=== PATIENT | female | born 1955 | race American Indian/Alaskan Native ===

== ENCOUNTER 2018-03-11 12:51 | Inpatient (IN) | payer MEDICAID ==
[2018-03-11] MEDS ORDERED: Sodium Chloride 0.9% 1,000 ML IV ONE (13:33)
[2018-03-11] MEDS ORDERED: Albuterol-Ipratrop 3 mg / 0.5 (3 ml) UD INH STA ×2 (13:34→14:05)
[2018-03-11] MEDS ORDERED: Sodium Chloride 0.9% 1,000 ML ONE (14:02)
[2018-03-11 14:07] LABS: BASO % 0.7 % (0.0-2.0); EOS # 0.2 K/uL (0.0-0.7); EOS % 2.7 % (0.0-4.0); HEMOGLOBIN 12.9 g/dL (11.0-16.0); LYMPH # 2.2 K/uL (1.0-4.3); LYMPH % 32.5 % (20.0-40.0); MEAN CELL VOLUME 89.7 fL (81.0-99.0); MEAN CORPUSCULAR HGB CONC 34.5 g/dL (33.0-37.0); MEAN PLATELET VOLUME 8.5 fL (7.2-11.7); MONO # 0.4 K/uL (0.0-0.8); MONO % 6.2 % (0.0-10.0); NEUT % 57.9 % (50.0-75.0); RBC 4.17 Mil/uL (3.80-5.20); RED CELL DISTRIBUTION WIDTH 14.6 % (11.5-14.5); WHITE BLOOD COUNT 6.9 K/uL (4.8-10.8)
[2018-03-11] MEDS ORDERED: Albuterol-Ipratrop 3 mg / 0.5 (3 ml) UD ONE ×2 (14:12→15:37)
[2018-03-11 14:19] LABS: ALB/GLOB RATIO 1.2 (1.0-2.1); ALBUMIN 4.2 g/dL (3.5-5.0); ALT/SGPT 11 U/L (9-52); AST/SGOT 15 U/L (14-36); BLOOD UREA NITROGEN 8 mg/dL (7-17); CALCIUM 9.1 mg/dl (8.6-10.4); GFR NON-AFRICAN AMERICAN > 60
[2018-03-11 14:30] LABS: B-TYPE NATRIURETIC PEPTIDE 24.3 pg/mL (0-900)
--- NOTE | 2018-03-11 14:40 | C.PDOC ---
History Of Present Illness 62 y/o female, w/PMhx of COPD, presents to the ER complaining of persistent cough which has been present for the past 2 weeks. Patient states that she smokes 5 cigarettes per day. Patient reports that she uses a puffer at home.Denies having CP, SOB, fever, and chills. Time Seen by Provider: 03/11/18 13:26 Chief Complaint (Nursing): Cough, Cold, Congestion History Per: Patient History/Exam Limitations: no limitations Onset/Duration Of Symptoms: Days Current Symptoms Are (Timing): Still Present Severity: Moderate Past Medical History Reviewed: Historical Data, Nursing Documentation, Vital Signs Vital Signs: Last Vital Signs Temp 99.5 F 03/11/18 13:05 Pulse 115 H 03/11/18 13:05 Resp 18 03/11/18 13:05 BP 151/120 H 03/11/18 13:05 Pulse Ox 97 03/11/18 13:05 - Medical History PMH: COPD, HTN, Hyperlipidemia Surgical History: No Surg Hx Family History: States: No Known Family Hx - Social History Hx Alcohol Use: No Hx Substance Use: No - Immunization History Hx Tetanus Toxoid Vaccination: No Hx Influenza Vaccination: No Hx Pneumococcal Vaccination: No Review Of Systems Except As Marked, All Systems Reviewed And Found Negative. Constitutional: Positive for: Other (poor sleep, + snoring, + sleep apnea, Unable to loose weight with minimal PO intake). Negative for: Fever, Chills Cardiovascular: Negative for: Chest Pain Respiratory: Positive for: Cough. Negative for: Shortness of Breath Physical Exam - Physical Exam Appears: Other (obese black female, moderate respiratory distress) Skin: Normal Color, Warm, Dry Head: Atraumatic, Normacephalic Eye(s): bilateral: Normal Inspection Nose: Normal Oral Mucosa: Moist Throat: Normal, No Erythema, No Exudate Neck: Supple Chest: Symmetrical Cardiovascular: Rhythm Regular Respiratory: Rhonchi (scattered rhonchi), Wheezing (scattered wheezing) Gastrointestinal/Abdominal: Normal Exam, Soft, No Tenderness, No Guarding, No Rebound Neurological/Psych: Oriented x3, Normal Speech ED Course And Treatment - Laboratory Results Result Diagrams: 03/11/18 14:03 03/11/18 14:03 Lab Interpretation: Normal (trop/bnp neg.) ECG: Interpreted By Me ECG Rhythm: Sinus Rhythm ECG Interpretation: Normal Rate From EC O2 Sat by Pulse Oximetry: 97 (RA) Pulse Ox Interpretation: Normal - Radiology CXR: Interpreted by Me CXR Interpretation: Yes: No Acute Disease, Other (+ hyperinflated) Reevaluation Time: 14:36 Reassessment Condition: Improved - Physician Consult Information Outcome Of Conversation: [id number]: d/w Hospitalist- covering self-pay pt's, ok to Tele Obs. Medical Decision Making Medical Decision Making: copd smoker normal WBC's defer ABx conitnue steroids, nebs YUDELKA; typical symptoms consider bipap/cpap QHS Sleep study f/u as opt or inpt Nicotine Addiction Continue Nicotine patch as inpt Disposition Doctor Will See Patient In The: Hospital Counseled Patient/Family Regarding: Studies Performed, Diagnosis - Disposition Disposition: HOSPITALIZED Disposition Time: 14:40 Condition: GOOD Forms: [facility] (Paraguayan) - Clinical Impression Clinical Impression: COPD (chronic obstructive pulmonary disease), Sleep apnea in adult - Scribe Statement The provider has reviewed the documentation as recorded by the Garcia Carroll Provider Attestation: All medical record entries made by the Khloeibdmitry were at my direction and personally dictated by me. I have reviewed the chart and agree that the record accurately reflects my personal performance of the history, physical exam, medical decision making, and the department course for this patient. I have also personally directed, reviewed, and agree with the discharge instructions and disposition.
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
[2018-03-11 15:51] LABS: ABG ALLEN TEST POS; ARTERIAL BLOOD GAS HCO3 24.9 mmol/L (21-28); ARTERIAL BLOOD GAS HEMOGLOBIN 12.9 g/dL (11.7-17.4); ARTERIAL BLOOD GAS O2 SAT 97.9 % (95-98); ARTERIAL BLOOD GAS PCO2 40 mm/Hg (35-45); ARTERIAL BLOOD GAS PO2 82 mm/Hg (80-100)
[2018-03-11] MEDS ORDERED: MethylPREDNISolone 40 mg Vial IVP SCH (16:15)
[2018-03-11 16:29] VITALS: RESP 20
[2018-03-11] MEDS ORDERED: NIFEdipine 60 mg ER Tab PO ONE (16:30)
--- NOTE | 2018-03-11 16:32 | RAD ---
Date of service: 03/11/2018 PROCEDURE: CHEST RADIOGRAPH, 1 VIEW HISTORY: SOB COMPARISON: None available. FINDINGS: LUNGS: Minor bibasilar atelectasis. PLEURA: No pneumothorax or pleural fluid seen. CARDIOVASCULAR: Heart size upper limits of normal. Aorta slightly ectatic and uncoiled. OSSEOUS STRUCTURES: No significant abnormalities. VISUALIZED UPPER ABDOMEN: Normal. OTHER FINDINGS: None. IMPRESSION: Minor bibasilar atelectasis.
[2018-03-11 17:39] LABS: STREP PNEUMONIAE NEGATIVE (NEGATIVE)
[2018-03-11] MEDS: Saccharomyces Boulardi 250 mg Cap PO SCH (17:40)
[2018-03-11] MEDS: guaiFENesin 600 mg ER Tab PO SCH (17:40)
[2018-03-11] MEDS: Albuterol-Ipratrop 3 mg / 0.5 (3 ml) UD INH SCH ×2 (19:36→23:37)
[2018-03-11] MEDS: MethylPREDNISolone 40 mg Vial IVP SCH (20:20)
[2018-03-12] MEDS: Albuterol-Ipratrop 3 mg / 0.5 (3 ml) UD INH SCH ×6 (02:59→23:13)
[2018-03-12] MEDS: MethylPREDNISolone 40 mg Vial IVP SCH ×3 (04:22→21:00)
[2018-03-12 07:42] LABS: BASO % 0.1 % (0.0-2.0); HEMOGLOBIN 13.1 g/dL (11.0-16.0); LYMPH # 0.9 K/uL (1.0-4.3); LYMPH % 9.5 % (20.0-40.0); MEAN CORPUSCULAR HEMOGLOBIN 30.8 pg (27.0-31.0); MEAN CORPUSCULAR HGB CONC 34.6 g/dL (33.0-37.0); MEAN PLATELET VOLUME 8.6 fL (7.2-11.7); MONO # 0.2 K/uL (0.0-0.8); MONO % 2.1 % (0.0-10.0); NEUT % 88.3 % (50.0-75.0); PLATELET COUNT 263 K/uL (130-400); RBC 4.24 Mil/uL (3.80-5.20); RED CELL DISTRIBUTION WIDTH 14.4 % (11.5-14.5); WHITE BLOOD COUNT 9.1 K/uL (4.8-10.8)
[2018-03-12] MEDS: Tiotropium 18 mcg Cap For Inhalation INH SCH (08:02)
[2018-03-12 08:04] LABS: ALB/GLOB RATIO 1.2 (1.0-2.1); ALBUMIN 4.2 g/dL (3.5-5.0); ALT/SGPT 7 U/L (9-52); AST/SGOT 16 U/L (14-36); BLOOD UREA NITROGEN 14 mg/dL (7-17); CALCIUM 9.6 mg/dl (8.6-10.4); GFR NON-AFRICAN AMERICAN > 60; HDL CHOLESTEROL 59 mg/dL (30-70)
[2018-03-12 08:07] LABS: LDL CHOLESTEROL 145 mg/dL (0-129)
[2018-03-12 09:23] LABS: BANDS 1 % (0-2); TOTAL CELLS COUNTED 100
[2018-03-12 09:24] LABS: ANISOCYTOSIS SLIGHT; LARGE PLATELETS PRESENT; LYMPHOCYTE 9 % (20-40); MONOCYTE 2 % (0-10); NEUTROPHIL 88 % (50-75); PLATELET ESTIMATE NORMAL (NORMAL)
[2018-03-12] MEDS: Enoxaparin 40 mg Syringe SC SCH (09:27)
[2018-03-12] MEDS: Saccharomyces Boulardi 250 mg Cap PO SCH ×2 (09:27→18:16)
[2018-03-12] MEDS: NIFEdipine 60 mg ER Tab PO SCH (09:28)
[2018-03-12] MEDS: guaiFENesin 600 mg ER Tab PO SCH ×2 (09:28→18:16)
[2018-03-12] MEDS ORDERED: Pneumococcal 23-Valent Vaccine IM ONE (10:00)
--- NOTE | 2018-03-12 12:39 | RAD ---
Date of service: 03/12/2018 HISTORY: Shortness of breath. COMPARISON: March 11, 2018. TECHNIQUE: Chest PA and lateral FINDINGS: LUNGS: No active pulmonary disease. PLEURA: No significant pleural effusion identified. No pneumothorax apparent. CARDIOVASCULAR: No radiographic findings to suggest acute or significant cardiovascular disease. OSSEOUS STRUCTURES: No significant abnormalities. VISUALIZED UPPER ABDOMEN: Normal. OTHER FINDINGS: None. IMPRESSION: No active disease. No significant interval change compared to the prior examination(s).
[2018-03-12] MEDS ORDERED: Dextrose 50% SYRINGE Inj (50 ml) IV PRN (12:56)
[2018-03-12] MEDS ORDERED: Glucagon Recombinant 1 mg Inj IM PRN (13:08)
[2018-03-12] MEDS: Moxifloxacin IV 400mg/250ml NS 400 MG/250 ML BAG IVPB SCH (14:39)
[2018-03-12] MEDS: (Novolin R) Insulin Human Regular 100 units/ml vial SC SCH ×2 (18:16→22:14)
--- NOTE | 2018-03-12 19:00 | CP.PCM.PN ---
Subjective - Date & Time of Evaluation Date of Evaluation: 03/12/18 Time of Evaluation: 07:00 - Subjective Subjective: PGY2- Progress Note for Dr. Menendez Patient seen and examined at bedside and in no acute distress. Patient says her shortness of breath is slightly better, but her cough is still bothering her. Patient denies any headache, chest pain, abdominal pain, nausea, vomiting, constipation, or diarrhea. Objective - Vital Signs/Intake and Output Vital Signs (last 24 hours): Temp Pulse Resp BP Pulse Ox 98.1 F 95 H 20 156/87 H 98 03/12/18 15:53 03/12/18 15:53 03/12/18 15:53 03/12/18 18:16 03/12/18 15:53 Intake and Output: 03/12/18 03/12/18 06:59 18:59 Intake Total 500 720 Balance 500 720 - Medications Medications: Current Medications Albuterol/Ipratropium (Duoneb 3 Mg/0.5 Mg (3 Ml) Ud) 3 ml INH RQ4 [facility] Last Admin: 03/12/18 16:02 Dose: 3 ml Aspirin (Aspirin Chewable) 81 mg PO DAILY [facility] Last Admin: 03/12/18 09:27 Dose: 81 mg Benzonatate (Tessalon Perles) 100 mg PO TID [facility] Last Admin: 03/12/18 18:16 Dose: 100 mg Dextrose (Dextrose 50% Inj) 0 ml IV STAT PRN; Protocol PRN Reason: Hypoglycemia Protocol Dextrose (Glutose 15) 0 gm PO ONCE PRN; Protocol PRN Reason: Hypoglycemia Protocol Enoxaparin Sodium (Lovenox) 40 mg SC DAILY [facility] Last Admin: 03/12/18 09:27 Dose: 40 mg Famotidine (Pepcid) 20 mg PO DAILY [facility] Last Admin: 03/12/18 09:28 Dose: 20 mg Glucagon (Glucagen Diagnostic Kit) 0 mg IM STAT PRN; Protocol PRN Reason: Hypoglycemia Protocol Guaifenesin (Mucinex La) 600 mg PO BID [facility] Last Admin: 03/12/18 18:16 Dose: 600 mg Hydrochlorothiazide (Microzide) 12.5 mg PO DAILY [facility] Last Admin: 03/12/18 09:28 Dose: 12.5 mg Dextrose (Dextrose 5% In Water 1000 Ml) 1,000 mls @ 0 mls/hr IV .Q0M PRN; Protocol PRN Reason: Hypoglycemia Protocol Moxifloxacin HCl (Avelox Iv 400mg/250ml Ns) 400 mg in 250 mls @ 167 mls/hr IVPB Q24H [facility]; Protocol Last Admin: 03/12/18 14:39 Dose: 167 mls/hr Influenza Virus Vaccine (Fluzone Quad [id number]) 60 mcg IM .ONCE ONE Stop: 03/13/18 10:01 Insulin Human Regular (Novolin R) 0 unit [facility]; Protocol Last Admin: 03/12/18 18:16 Dose: Not Given Methylprednisolone (Solu-Medrol) 40 mg IVP Q8H [facility] Last Admin: 03/12/18 13:10 Dose: 40 mg Metoprolol Tartrate (Lopressor) 25 mg PO BID [facility] Last Admin: 03/12/18 18:16 Dose: 25 mg Nicotine (Nicoderm Cq) 1 patch TD DAILY [facility] Last Admin: 03/12/18 09:27 Dose: 1 patch Nifedipine (Procardia Xl) 60 mg PO DAILY [facility] Last Admin: 03/12/18 09:28 Dose: 60 mg Pneumococcal Polyvalent Vaccine (Pneumovax 23 Vaccine) 0.5 ml IM .ONCE ONE Stop: 03/14/18 10:01 Rosuvastatin Calcium (Crestor) 10 mg PO HS [facility] Saccharomyces Boulardii (Florastor) 250 mg PO BID [facility] Last Admin: 03/12/18 18:16 Dose: 250 mg Tiotropium [place] (Spiriva) 18 mcg INH RQ24 [facility] Last Admin: 03/12/18 08:02 Dose: 18 mcg - Labs Labs: 03/12/18 07:29 03/12/18 07:29 - Additional Findings Additional findings: - Constitutional Appears: Non-toxic, No Acute Distress - Head Exam Head Exam: ATRAUMATIC, NORMAL INSPECTION, NORMOCEPHALIC - Eye Exam Eye Exam: EOMI, Normal appearance - ENT Exam ENT Exam: Mucous Membranes Moist - Respiratory Exam Respiratory Exam: Wheezes. absent: Accessory Muscle Use Additional comments: wheezing and coughing improved from yesterday - Cardiovascular Exam Cardiovascular Exam: Tachycardia, REGULAR RHYTHM, +S1, +S2 - GI/Abdominal Exam GI & Abdominal Exam: Normal Bowel Sounds, Soft. absent: Tenderness - Back Exam Back exam: NORMAL INSPECTION - Neurological Exam Neurological exam: Alert, Oriented x3 - Skin Skin Exam: Intact, Normal Color, Warm Assessment and Plan - Assessment and Plan (Free Text) Assessment: COPD exacerbation legionella, mycoplasma, strep pneumo negative f/u pertussis cxray: minor bibasilar atelectasis D dimer <200 duonebs q4h theo Tessalon perles Mucinex 600mg po BID Solumedrol 40mg ivp q8h , decrease to 40mg q12h on 03/13 Spiriva daily Avelox 400mg daily Uncontrolled HTN patient did not take any home meds today, stat doses given in ER ASA 81mg po daily HCTZ 12.5mg po daily Lopressor 25mg po q12h Nifedipine 60mg po daily DMII hold home metformin HgA1C- 6.5 accuchecks ISS- low hypoglycemia protocol HLD Crestor 10mg po HS started Triglycerides: 62, Cholesterol 247, LDL 145, HDL 59 Tobacco Use Disorder Nicotine patch patient counseled on quitting Prophylaxis DVT: Lovenox 40mg sc daily GI: pepcid 20mg po daily Florastor 250mg po BID heart healthy diet Discussed with Dr. Menendez
[2018-03-13] MEDS: Albuterol-Ipratrop 3 mg / 0.5 (3 ml) UD INH SCH ×3 (03:34→20:13)
[2018-03-13] MEDS: MethylPREDNISolone 40 mg Vial IVP SCH ×3 (04:30→21:44)
[2018-03-13 06:37] LABS: BASO % 0.1 % (0.0-2.0); HEMOGLOBIN 12.2 g/dL (11.0-16.0); LYMPH # 0.9 K/uL (1.0-4.3); MEAN CELL VOLUME 90.2 fL (81.0-99.0); MEAN CORPUSCULAR HGB CONC 33.3 g/dL (33.0-37.0); MEAN PLATELET VOLUME 8.6 fL (7.2-11.7); MONO # 0.4 K/uL (0.0-0.8); MONO % 2.7 % (0.0-10.0); NEUT # 13.5 K/uL (1.8-7.0); NEUT % 91.2 % (50.0-75.0); PLATELET COUNT 252 K/uL (130-400); RBC 4.07 Mil/uL (3.80-5.20); RED CELL DISTRIBUTION WIDTH 14.6 % (11.5-14.5); WHITE BLOOD COUNT 14.8 K/uL (4.8-10.8)
[2018-03-13 07:37] LABS: ALB/GLOB RATIO 1.2 (1.0-2.1); ALBUMIN 3.8 g/dL (3.5-5.0); ALT/SGPT 21 U/L (9-52); AST/SGOT 22 U/L (14-36); BLOOD UREA NITROGEN 19 mg/dL (7-17); CALCIUM 9.2 mg/dl (8.6-10.4); GFR NON-AFRICAN AMERICAN > 60
[2018-03-13] MEDS: (Novolin R) Insulin Human Regular 100 units/ml vial SC SCH ×4 (07:50→21:48)
[2018-03-13 08:26] LABS: LYMPHOCYTE 7 % (20-40); MONOCYTE 1 % (0-10); NEUTROPHIL 92 % (50-75); PLATELET ESTIMATE NORMAL (NORMAL); TOTAL CELLS COUNTED 100
[2018-03-13] MEDS: Tiotropium 18 mcg Cap For Inhalation INH SCH (08:30)
[2018-03-13] MEDS: Saccharomyces Boulardi 250 mg Cap PO SCH ×2 (09:19→17:36)
[2018-03-13] MEDS: guaiFENesin 600 mg ER Tab PO SCH ×2 (09:19→17:33)
[2018-03-13] MEDS: NIFEdipine 60 mg ER Tab PO SCH (09:20)
[2018-03-13] MEDS: Enoxaparin 40 mg Syringe SC SCH (09:21)
[2018-03-13] MEDS ORDERED: Influenza Vaccine 60 MCG/0.5 ML SYR (3 yr & up) IM ONE (10:00)
--- NOTE | 2018-03-13 13:56 | CP.PCM.PN ---
Subjective - Date & Time of Evaluation Date of Evaluation: 03/13/18 Time of Evaluation: 09:20 - Subjective Subjective: PGY-[address] Menendez service Patient is seen and examined sitting at bedside. Patient states feeling better since she was admitted to the hospital. Patient says her breathing has improved. Patient continues to cough, but says frequency has decreased, as well as phlegm production, describing her cough as dry. Patient admits to muscular soreness under her ribs most likely from coughing effort. Patient admits to mild headache. Patient denies chest pain, shortness of breath, fever, chills, diarrhea, constipation, nausea, vomiting or swollen legs. Objective - Vital Signs/Intake and Output Vital Signs (last 24 hours): Temp Pulse Resp BP Pulse Ox 98.3 F 82 20 155/98 H 97 03/13/18 07:47 03/13/18 12:00 03/13/18 07:47 03/13/18 09:20 03/13/18 07:47 Intake and Output: 03/13/18 03/13/18 06:59 18:59 Intake Total 500 Balance 500 - Medications Medications: Current Medications Albuterol/Ipratropium (Duoneb 3 Mg/0.5 Mg (3 Ml) Ud) 3 ml INH RQ4 [facility] Last Admin: 03/13/18 08:30 Dose: 3 ml Aspirin (Aspirin Chewable) 81 mg PO DAILY [facility] Last Admin: 03/13/18 09:20 Dose: 81 mg Benzonatate (Tessalon Perles) 100 mg PO TID [facility] Last Admin: 03/13/18 13:52 Dose: 100 mg Dextrose (Dextrose 50% Inj) 0 ml IV STAT PRN; Protocol PRN Reason: Hypoglycemia Protocol Dextrose (Glutose 15) 0 gm PO ONCE PRN; Protocol PRN Reason: Hypoglycemia Protocol Enoxaparin Sodium (Lovenox) 40 mg SC DAILY [facility] Last Admin: 03/13/18 09:21 Dose: 40 mg Famotidine (Pepcid) 20 mg PO DAILY [facility] Last Admin: 03/13/18 09:19 Dose: 20 mg Glucagon (Glucagen Diagnostic Kit) 0 mg IM STAT PRN; Protocol PRN Reason: Hypoglycemia Protocol Guaifenesin (Mucinex La) 600 mg PO BID [facility] Last Admin: 03/13/18 09:19 Dose: 600 mg Hydrochlorothiazide (Microzide) 12.5 mg PO DAILY [facility] Last Admin: 03/13/18 09:20 Dose: 12.5 mg Dextrose (Dextrose 5% In Water 1000 Ml) 1,000 mls @ 0 mls/hr IV .Q0M PRN; Protocol PRN Reason: Hypoglycemia Protocol Moxifloxacin HCl (Avelox Iv 400mg/250ml Ns) 400 mg in 250 mls @ 167 mls/hr IVPB Q24H [facility]; Protocol Last Admin: 03/12/18 14:39 Dose: 167 mls/hr Insulin Human Regular (Novolin R) 0 unit SC ACHS [facility]; Protocol Last Admin: 03/13/18 11:49 Dose: Not Given Methylprednisolone (Solu-Medrol) 40 mg IVP Q12H [facility] Last Admin: 03/13/18 09:20 Dose: 40 mg Metoprolol Tartrate (Lopressor) 25 mg PO BID [facility] Last Admin: 03/13/18 09:20 Dose: 25 mg Nicotine (Nicoderm Cq) 1 patch TD DAILY [facility] Last Admin: 03/13/18 09:20 Dose: 1 patch Nifedipine (Procardia Xl) 60 mg PO DAILY [facility] Last Admin: 03/13/18 09:20 Dose: 60 mg Pneumococcal Polyvalent Vaccine (Pneumovax 23 Vaccine) 0.5 ml IM .ONCE ONE Stop: 03/14/18 10:01 Rosuvastatin Calcium (Crestor) 10 mg PO HS [facility] Last Admin: 03/12/18 22:14 Dose: 10 mg Saccharomyces Boulardii (Florastor) 250 mg PO BID [facility] Last Admin: 03/13/18 09:19 Dose: 250 mg Tiotropium [place] (Spiriva) 18 mcg INH RQ24 [facility] Last Admin: 03/13/18 08:30 Dose: Not Given - Labs Labs: 03/13/18 06:25 03/13/18 06:25 - Constitutional Appears: Well, Non-toxic, No Acute Distress - Head Exam Head Exam: ATRAUMATIC, NORMAL INSPECTION, NORMOCEPHALIC - Eye Exam Eye Exam: EOMI, Normal appearance - ENT Exam ENT Exam: Mucous Membranes Moist, Normal Exam - Neck Exam Neck Exam: Full ROM, Normal Inspection - Respiratory Exam Respiratory Exam: Wheezes. absent: Accessory Muscle Use, Respiratory Distress Additional comments: diffuse bilateral expiratory wheezing on all lung lobes - Cardiovascular Exam Cardiovascular Exam: Tachycardia, REGULAR RHYTHM, +S1, +S2 - GI/Abdominal Exam GI & Abdominal Exam: Soft, Normal Bowel Sounds. absent: Guarding, Tenderness - Extremities Exam Extremities Exam: Full ROM, Normal Inspection. absent: Calf Tenderness, Tenderness - Back Exam Back Exam: NORMAL INSPECTION, rash noted, vertebral tenderness - Neurological Exam Neurological Exam: Alert, Awake, Oriented x3 - Psychiatric Exam Psychiatric exam: Normal Affect, Normal Mood - Skin Skin Exam: Dry, Intact, Normal Color, Warm Assessment and Plan - Assessment and Plan (Free Text) Plan: COPD exacerbation legionella, mycoplasma, strep pneumo negative bordetella pertussis culture -- pending, F/U cxray: minor bibasilar atelectasis D dimer <200 WBC 03/13 - 14.8 from 9.1, most likely reactive from IV steroid use - keep monit oring CBC Pulmonology consult for Dr Guadarrama - Help is appreciated for eval for copd/YUDELKA, smoker x50 years Meds: duonebs inh q4h theo Tessalon perles 100 mg PO TID Mucinex 600mg po BID Solumedrol 40mg ivp q12h Spiriva 18mgc inh daily Avelox 400mg daily, started 03/12, day #2 Uncontrolled HTN BP: 135/84 Continue monitoring BP Meds: ASA 81mg po daily HCTZ 12.5mg po daily Lopressor 25mg po BID Nifedipine 60mg po daily DMII hold home metformin HgA1C- 6.5 accuchecks ISS- low hypoglycemia protocol - last readings 142 (20:00 prev day), 177 (4am), 142 (8am) HLD Crestor 10mg po HS started Triglycerides: 62, Cholesterol 247, LDL 145, HDL 59 Tobacco Use Disorder Nicotine patch patient counseled on quitting CT chest W/O contrast ordered due to risk factors, long history of smoking - F/U results Prophylaxis DVT: Lovenox 40mg sc daily GI: pepcid 20mg po daily Florastor 250mg po BID heart healthy diet Pain management: 03/13 given Tylenol 650 mg PO once for pain. Liver enzymes AST/ALT F/U pastoral care services - consult placed - help is appreciated Plan discussed with Dr Gemma Delgado, PGY-1
[2018-03-13] MEDS: Moxifloxacin IV 400mg/250ml NS 400 MG/250 ML BAG IVPB SCH (14:01)
--- NOTE | 2018-03-13 16:26 | CT ---
Date of service: 03/13/2018 PROCEDURE: CT Chest without contrast HISTORY: lung cancer screening COMPARISON: None available. TECHNIQUE: Contiguous axial images were obtained through the chest without intravenous contrast enhancement. Sagittal and coronal reconstructions were performed. Radiation dose (DLP): 973 mGy-cm. This CT exam was performed using one or more of the following dose reduction techniques: Automated exposure control, adjustment of the mA and/or kV according to patient size, and/or use of iterative reconstruction technique. FINDINGS: LUNGS: Clear lungs. Visualized airway clear MEDIASTINUM: Unremarkable thoracic aorta. No aneurysm. Normal sized heart. Main pulmonary artery unremarkable. No vascular congestion. No lymphadenopathy. PLEURA: No pleural fluid. No pneumothorax. BONES: No fracture. No destructive lesion. UPPER ABDOMEN: Grossly unremarkable. OTHER FINDINGS: None. IMPRESSION: Unremarkable non-contrast enhanced CT of the chest.
--- NOTE | 2018-03-13 17:42 | CP.PCM.CON ---
History of Present Illness - History of Present Illness History of Present Illness: Reason for consultation: cough and shortness of breath 62-year-old female with past medical ory of bronchitis, diabetes, hypertension, hyperlipidemia presented with worsening shortness of breath and cough for the past 2 weeks.. Shortness of breath is mostly on exertion and also complaining of difficulty sleeping at night. Allergies: Penicillin: hives, Procardia: tachycardia (even though patient takes it daily??), Codeine: nausea/vomiting PMHx: HTN, DMII, HLD, and COPD Psurg: hysterectomy 1993 Famhx: Mom: stomach CA, ESRD Dad: pancreatic CA Sister: Liver CA Social: smokes 6 cigs/ day, used to smoked 1/2ppd for about 48 years, denies alcohol or drugs. lives in [place], works parts salesman in [employer] meds: Metformin 500mg po bid, Metoprolol 25mg po BID, Meloxicam 7.5mg prn for hip pain, Nifedipine ER 60mg daily, ASA 81mg po daily, B12 1000mcg daily, HCTZ 12.5mg daily (noncompliant), Albuterol inhaler Review of Systems - Review of Systems All systems: reviewed and no additional remarkable complaints except (cough and shortness of breath) Past Patient History - Past Social History Smoking Status: Heavy Smoker > 10 Cigarettes Daily - CARDIAC Hx Hypertension: Yes - PULMONARY Hx Chronic Obstructive Pulmonary Disease (COPD): Yes - ENDOCRINE/METABOLIC Hx Diabetes Mellitus Type 2: Yes - PSYCHIATRIC Hx Substance Use: No Meds Allergies/Adverse Reactions: Allergies Allergy/AdvReac Type Severity Reaction Status Date / Time codeine Allergy Verified 03/11/18 13:08 nifedipine [From Procardia] Allergy Verified 03/11/18 13:08 Penicillins Allergy Verified 03/11/18 13:08 - Medications Medications: Current Medications Albuterol/Ipratropium (Duoneb 3 Mg/0.5 Mg (3 Ml) Ud) 3 ml INH RQ4 [facility] Last Admin: 03/13/18 08:30 Dose: 3 ml Aspirin (Aspirin Chewable) 81 mg PO DAILY [facility] Last Admin: 03/13/18 09:20 Dose: 81 mg Benzonatate (Tessalon Perles) 100 mg PO TID [facility] Last Admin: 03/13/18 17:33 Dose: 100 mg Dextrose (Dextrose 50% Inj) 0 ml IV STAT PRN; Protocol PRN Reason: Hypoglycemia Protocol Dextrose (Glutose 15) 0 gm PO ONCE PRN; Protocol PRN Reason: Hypoglycemia Protocol Enoxaparin Sodium (Lovenox) 40 mg SC DAILY [facility] Last Admin: 03/13/18 09:21 Dose: 40 mg Famotidine (Pepcid) 20 mg PO DAILY [facility] Last Admin: 03/13/18 09:19 Dose: 20 mg Glucagon (Glucagen Diagnostic Kit) 0 mg IM STAT PRN; Protocol PRN Reason: Hypoglycemia Protocol Guaifenesin (Mucinex La) 600 mg PO BID [facility] Last Admin: 03/13/18 17:33 Dose: 600 mg Hydrochlorothiazide (Microzide) 12.5 mg PO DAILY [facility] Last Admin: 03/13/18 09:20 Dose: 12.5 mg Dextrose (Dextrose 5% In Water 1000 Ml) 1,000 mls @ 0 mls/hr IV .Q0M PRN; Pro tocol PRN Reason: Hypoglycemia Protocol Moxifloxacin HCl (Avelox Iv 400mg/250ml Ns) 400 mg in 250 mls @ 167 mls/hr IVPB Q24H [facility]; Protocol Last Admin: 03/13/18 14:01 Dose: 167 mls/hr Insulin Human Regular (Novolin R) 0 unit SC ACHS [facility]; Protocol Last Admin: 03/13/18 17:27 Dose: Not Given Methylprednisolone (Solu-Medrol) 40 mg IVP Q12H [facility] Last Admin: 03/13/18 09:20 Dose: 40 mg Metoprolol Tartrate (Lopressor) 25 mg PO BID [facility] Last Admin: 03/13/18 17:33 Dose: 25 mg Nicotine (Nicoderm Cq) 1 patch TD DAILY [facility] Last Admin: 03/13/18 09:20 Dose: 1 patch Nifedipine (Procardia Xl) 60 mg PO DAILY [facility] Last Admin: 03/13/18 09:20 Dose: 60 mg Pneumococcal Polyvalent Vaccine (Pneumovax 23 Vaccine) 0.5 ml IM .ONCE ONE Stop: 03/14/18 10:01 Rosuvastatin Calcium (Crestor) 10 mg PO HS [facility] Last Admin: 03/12/18 22:14 Dose: 10 mg Saccharomyces Boulardii (Florastor) 250 mg PO BID [facility] Last Admin: 03/13/18 17:36 Dose: 250 mg Tiotropium [place] (Spiriva) 18 mcg INH RQ24 [facility] Last Admin: 03/13/18 08:30 Dose: Not Given Physical Exam - Head Exam Head Exam: ATRAUMATIC, NORMOCEPHALIC - ENT Exam ENT Exam: Mucous Membranes Moist - Neck Exam Neck exam: Positive for: Normal Inspection - Respiratory Exam Respiratory Exam: Rhonchi, Wheezes - Cardiovascular Exam Cardiovascular Exam: REGULAR RHYTHM - GI/Abdominal Exam GI & Abdominal Exam: Normal Bowel Sounds, Soft - Extremities Exam Extremities exam: Positive for: normal inspection Results - Vital Signs Recent Vital Signs: Last Vital Signs Temp 98.2 F 03/13/18 15:50 Pulse 87 03/13/18 15:50 Resp 20 03/13/18 15:50 BP 158/99 H 03/13/18 17:33 Pulse Ox 97 03/13/18 15:50 - Labs Result Diagrams: 03/13/18 06:25 03/13/18 06:25 Labs: Laboratory Results - last 24 hr 03/12/18 03/12/18 03/13/18 07:29 21:25 05:59 WBC RBC Hgb Hct MCV MCH MCHC RDW Plt Count MPV Neut % (Auto) Lymph % (Auto) [place] % (Auto) Eos % (Auto) Baso % (Auto) Neut # (Auto) Lymph # (Auto) [place] # (Auto) Eos # (Auto) Baso # (Auto) Neutrophils % (Manual) Lymphocytes % (Manual) Monocytes % (Manual) Platelet Estimate Sodium Potassium Chloride Carbon Dioxide Anion Gap BUN Creatinine Est GFR ( Amer) Est GFR (Non-Af Amer) POC Glucose (mg/dL) 142 H 177 H Random Glucose Calcium Phosphorus Magnesium Total Bilirubin AST ALT Alkaline Phosphatase Total Protein Albumin Globulin Albumin/Globulin Ratio IgE 1755 H 03/13/18 03/13/18 03/13/18 06:25 06:25 11:36 WBC 14.8 H D RBC 4.07 Hgb 12.2 Hct 36.7 MCV 90.2 MCH 30.0 MCHC 33.3 RDW 14.6 H Plt Count 252 MPV 8.6 Neut % (Auto) 91.2 H Lymph % (Auto) 6.0 L [place] % (Auto) 2.7 Eos % (Auto) 0.0 Baso % (Auto) 0.1 Neut # (Auto) 13.5 H Lymph # (Auto) 0.9 L [place] # (Auto) 0.4 Eos # (Auto) 0.0 Baso # (Auto) 0.0 Neutrophils % (Manual) 92 H Lymphocytes % (Manual) 7 L Monocytes % (Manual) 1 Platelet Estimate Normal Sodium 143 Potassium 3.9 Chloride 105 Carbon Dioxide 28 Anion Gap 14 BUN 19 H Creatinine 0.7 Est GFR ( Amer) > 60 Est GFR (Non-Af Amer) > 60 POC Glucose (mg/dL) 142 H Random Glucose 176 H Calcium 9.2 Phosphorus 4.1 Magnesium 2.1 Total Bilirubin 0.3 AST 22 ALT 21 Alkaline Phosphatase 59 Total Protein 7.1 Albumin 3.8 Globulin 3.3 Albumin/Globulin Ratio 1.2 IgE 03/13/18 16:35 WBC RBC Hgb Hct MCV MCH MCHC RDW Plt Count MPV Neut % (Auto) Lymph % (Auto) [place] % (Auto) Eos % (Auto) Baso % (Auto) Neut # (Auto) Lymph # (Auto) [place] # (Auto) Eos # (Auto) Baso # (Auto) Neutrophils % (Manual) Lymphocytes % (Manual) Monocytes % (Manual) Platelet Estimate Sodium Potassium Chloride Carbon Dioxide Anion Gap BUN Creatinine Est GFR ( Amer) Est GFR (Non-Af Amer) POC Glucose (mg/dL) 134 H Random Glucose Calcium Phosphorus Magnesium Total Bilirubin AST ALT Alkaline Phosphatase Total Protein Albumin Globulin Albumin/Globulin Ratio IgE Assessment & Plan (1) Bronchitis Status: Acute Comment: continue nebulizer treatment, steroids and antibiotics. CAT scan of the chest without contrast (2) COPD (chronic obstructive pulmonary disease) Status: Acute
--- NOTE | 2018-03-13 22:01 | CARD ---
APPROVED REPORT Date of service: 03/11/2018 EKG Measurement Heart [id number] <Conclusion> Normal sinus rhythm Normal ECG
[2018-03-14] MEDS: Albuterol-Ipratrop 3 mg / 0.5 (3 ml) UD INH SCH ×5 (00:43→19:32)
[2018-03-14] MEDS: (Novolin R) Insulin Human Regular 100 units/ml vial SC SCH ×3 (08:21→17:20)
[2018-03-14] MEDS ORDERED: Pneumococcal 23-Valent Vaccine IM ONE (10:00)
[2018-03-14] MEDS: guaiFENesin 600 mg ER Tab PO SCH (10:03)
[2018-03-14] MEDS: Saccharomyces Boulardi 250 mg Cap PO SCH ×2 (10:03→17:13)
[2018-03-14] MEDS: MethylPREDNISolone 40 mg Vial IVP SCH ×2 (10:03→22:01)
[2018-03-14] MEDS: NIFEdipine 60 mg ER Tab PO SCH (10:04)
[2018-03-14] MEDS: Enoxaparin 40 mg Syringe SC SCH (10:05)
[2018-03-14 11:19] LABS: HEMOGLOBIN 12.7 g/dL (11.0-16.0); LYMPH # 2.1 K/uL (1.0-4.3); LYMPH % 14.5 % (20.0-40.0); MEAN CELL VOLUME 89.9 fL (81.0-99.0); MEAN CORPUSCULAR HEMOGLOBIN 30.1 pg (27.0-31.0); MEAN CORPUSCULAR HGB CONC 33.4 g/dL (33.0-37.0); MEAN PLATELET VOLUME 8.5 fL (7.2-11.7); MONO # 1.1 K/uL (0.0-0.8); MONO % 7.5 % (0.0-10.0); NEUT # 11.2 K/uL (1.8-7.0); RBC 4.23 Mil/uL (3.80-5.20); RED CELL DISTRIBUTION WIDTH 14.7 % (11.5-14.5); WHITE BLOOD COUNT 14.3 K/uL (4.8-10.8)
[2018-03-14 11:30] LABS: ALB/GLOB RATIO 1.2 (1.0-2.1); ALBUMIN 4.1 g/dL (3.5-5.0); ALT/SGPT 13 U/L (9-52); AST/SGOT 20 U/L (14-36); BLOOD UREA NITROGEN 23 mg/dL (7-17); CALCIUM 9.1 mg/dl (8.6-10.4); GFR NON-AFRICAN AMERICAN > 60
[2018-03-14] MEDS ORDERED: Potassium Chloride 20 mEq ER Tab PO ONE (12:50)
[2018-03-14] MEDS: Moxifloxacin IV 400mg/250ml NS 400 MG/250 ML BAG IVPB SCH (14:22)
[2018-03-14] MEDS: guaiFENesin DM 200 mg-20 mg/10 ml UD PO SCH ×3 (14:22→20:00)
--- NOTE | 2018-03-14 17:37 | CP.PCM.PN ---
Subjective - Date & Time of Evaluation Date of Evaluation: 03/14/18 Time of Evaluation: 14:00 - Subjective Subjective: patient seen and examined Breathing and cough much improved Afebrile No chest pain CAT scan of the chest noted Objective - Vital Signs/Intake and Output Vital Signs (last 24 hours): Temp Pulse Resp BP Pulse Ox 97.8 F 77 20 162/96 H 97 03/14/18 15:50 03/14/18 15:50 03/14/18 15:50 03/14/18 17:14 03/14/18 15:50 Intake and Output: 03/14/18 03/14/18 06:59 18:59 Intake Total 560 Balance 560 - Medications Medications: Current Medications Albuterol/Ipratropium (Duoneb 3 Mg/0.5 Mg (3 Ml) Ud) 3 ml INH RQ4 [facility] Last Admin: 03/14/18 07:59 Dose: 3 ml Aspirin (Aspirin Chewable) 81 mg PO DAILY [facility] Last Admin: 03/14/18 10:03 Dose: 81 mg Benzonatate (Tessalon Perles) 100 mg PO TID [facility] Last Admin: 03/14/18 17:13 Dose: 100 mg Dextrose (Dextrose 50% Inj) 0 ml IV STAT PRN; Protocol PRN Reason: Hypoglycemia Protocol Dextrose (Glutose 15) 0 gm PO ONCE PRN; Protocol PRN Reason: Hypoglycemia Protocol Enoxaparin Sodium (Lovenox) 40 mg SC DAILY [facility] Last Admin: 03/14/18 10:05 Dose: 40 mg Famotidine (Pepcid) 20 mg PO DAILY [facility] Last Admin: 03/14/18 10:03 Dose: 20 mg Glucagon (Glucagen Diagnostic Kit) 0 mg IM STAT PRN; Protocol PRN Reason: Hypoglycemia Protocol Guaifenesin/Dextromethorphan (Robitussin Dm) 10 ml PO Q4 [facility] Last Admin: 03/14/18 16:00 Dose: 10 ml Hydrochlorothiazide (Microzide) 12.5 mg PO DAILY [facility] Last Admin: 03/14/18 10:03 Dose: 12.5 mg Dextrose (Dextrose 5% In Water 1000 Ml) 1,000 mls @ 0 mls/hr IV .Q0M PRN; Protocol PRN Reason: Hypoglycemia Protocol Moxifloxacin HCl (Avelox Iv 400mg/250ml Ns) 400 mg in 250 mls @ 167 mls/hr IVPB Q24H [facility]; Protocol Last Admin: 03/14/18 14:22 Dose: 167 mls/hr Insulin Human Regular (Novolin R) 0 unit SC ACHS [facility]; Protocol Last Admin: 03/14/18 17:20 Dose: Not Given Methylprednisolone (Solu-Medrol) 40 mg IVP Q12H [facility] Last Admin: 03/14/18 10:03 Dose: 40 mg Metoprolol Tartrate (Lopressor) 25 mg PO BID [facility] Last Admin: 03/14/18 17:14 Dose: 25 mg Nicotine (Nicoderm Cq) 1 patch TD DAILY [facility] Last Admin: 03/14/18 10:04 Dose: 1 patch Nifedipine (Procardia Xl) 60 mg PO DAILY [facility] Last Admin: 03/14/18 10:04 Dose: 60 mg Rosuvastatin Calcium (Crestor) 10 mg PO HS [facility] Last Admin: 03/13/18 21:44 Dose: 10 mg Saccharomyces Boulardii (Florastor) 250 mg PO BID [facility] Last Admin: 03/14/18 17:13 Dose: 250 mg Tiotropium [place] (Spiriva) 18 mcg INH RQ24 [facility] Last Admin: 03/13/18 08:30 Dose: Not Given - Labs Labs: 03/14/18 11:07 03/14/18 11:07 - Head Exam Head Exam: ATRAUMATIC, NORMOCEPHALIC - ENT Exam ENT Exam: Mucous Membranes Moist - Neck Exam Neck Exam: Normal Inspection - Respiratory Exam Respiratory Exam: Rhonchi - Cardiovascular Exam Cardiovascular Exam: REGULAR RHYTHM - GI/Abdominal Exam GI & Abdominal Exam: Soft, Normal Bowel Sounds - Extremities Exam Extremities Exam: Normal Inspection - Neurological Exam Neurological Exam: Alert Assessment and Plan (1) Bronchitis Assessment & Plan: continue nebulizer treatment Taper steroids Antibiotics Status: Acute (2) COPD (chronic obstructive pulmonary disease) Status: Acute
--- NOTE | 2018-03-14 21:29 | CP.PCM.PN ---
Subjective - Date & Time of Evaluation Date of Evaluation: 03/14/18 Time of Evaluation: 09:30 - Subjective Subjective: PGY-[address] Menon Patient is seen and examined sitting in bed. Patient states feeling much better than previous days. Patient states she continues having cough that comes and goes. Patient states breathing much better and improving pain under ribs due to excessive coughing on previous days. Patient says she feels herself "quivering" at times. Patient denies fevers, chills, chest pain, nausea, vomiting, diarrhea, constipation or dysuria. Objective - Vital Signs/Intake and Output Vital Signs (last 24 hours): Temp Pulse Resp BP Pulse Ox 97.8 F 77 20 162/96 H 97 03/14/18 15:50 03/14/18 15:50 03/14/18 15:50 03/14/18 17:14 03/14/18 15:50 Intake and Output: 03/14/18 03/15/18 18:59 06:59 Intake Total 560 Balance 560 - Medications Medications: Current Medications Albuterol/Ipratropium (Duoneb 3 Mg/0.5 Mg (3 Ml) Ud) 3 ml INH RQ4 [facility] Last Admin: 03/14/18 19:32 Dose: 3 ml Aspirin (Aspirin Chewable) [address] [facility] Last Admin: 03/14/18 10:03 Dose: 81 mg Benzonatate (Tessalon Perles) 100 mg PO TID [facility] Last Admin: 03/14/18 17:13 Dose: 100 mg Dextrose (Dextrose 50% Inj) 0 ml IV STAT PRN; Protocol PRN Reason: Hypoglycemia Protocol Dextrose (Glutose 15) 0 gm PO ONCE PRN; Protocol PRN Reason: Hypoglycemia Protocol Enoxaparin Sodium (Lovenox) 40 mg SC DAILY [facility] Last Admin: 03/14/18 10:05 Dose: 40 mg Famotidine (Pepcid) 20 mg PO DAILY [facility] Last Admin: 03/14/18 10:03 Dose: 20 mg Glucagon (Glucagen Diagnostic Kit) 0 mg IM STAT PRN; Protocol PRN Reason: Hypoglycemia Protocol Guaifenesin/Dextromethorphan (Robitussin Dm) 10 ml PO Q4 [facility] Last Admin: 03/14/18 16:00 Dose: 10 ml Hydrochlorothiazide (Microzide) 12.5 mg PO DAILY [facility] Last Admin: 03/14/18 10:03 Dose: 12.5 mg Dextrose (Dextrose 5% In Water 1000 Ml) 1,000 mls @ 0 mls/hr IV .Q0M PRN; Protocol PRN Reason: Hypoglycemia Protocol Moxifloxacin HCl (Avelox Iv 400mg/250ml Ns) 400 mg in 250 mls @ 167 mls/hr IVPB Q24H [facility]; Protocol Last Admin: 03/14/18 14:22 Dose: 167 mls/hr Metformin HCl (Glucophage) [address] [facility] Methylprednisolone (Solu-Medrol) [address] [facility] Last Admin: 03/14/18 10:03 Dose: 40 mg Metoprolol Tartrate (Lopressor) [address] [facility] Last Admin: 03/14/18 17:14 Dose: 25 mg Nicotine (Nicoderm Cq) [address] [facility] Last Admin: 03/14/18 10:04 Dose: 1 patch Nifedipine (Procardia Xl) [address] [facility] Last Admin: 03/14/18 10:04 Dose: 60 mg Rosuvastatin Calcium (Crestor) [address] [facility] Last Admin: 03/13/18 21:44 Dose: 10 mg Saccharomyces Boulardii (Florastor) [address] [facility] Last Admin: 03/14/18 17:13 Dose: 250 mg Tiotropium [place] (Spiriva) [address] [facility] Last Admin: 03/13/18 08:30 Dose: Not Given - Labs Labs: 03/14/18 11:07 03/14/18 11:07 - Constitutional Appears: Well, Non-toxic, No Acute Distress - Head Exam Head Exam: ATRAUMATIC, NORMAL INSPECTION, NORMOCEPHALIC - Eye Exam Eye Exam: EOMI, Normal appearance - ENT Exam ENT Exam: Mucous Membranes Moist, Normal Exam - Neck Exam Neck Exam: Full ROM, Normal Inspection - Respiratory Exam Respiratory Exam: Wheezes, NORMAL BREATHING PATTERN. absent: Accessory Muscle Use, Respiratory Distress Additional comments: improved bilateral wheezing on all lungs lobes. - Cardiovascular Exam Cardiovascular Exam: REGULAR RHYTHM, +S1, +S2 - GI/Abdominal Exam GI & Abdominal Exam: Soft, Normal Bowel Sounds. absent: Distended, Guarding, Tenderness - Extremities Exam Extremities Exam: Full ROM, Normal Inspection. absent: Calf Tenderness, Tenderness - Back Exam Back Exam: NORMAL INSPECTION - Neurological Exam Neurological Exam: Alert, Awake, Oriented x3 - Psychiatric Exam Psychiatric exam: Normal Affect, Normal Mood - Skin Skin Exam: Dry, Intact, Normal Color, Warm Assessment and Plan - Assessment and Plan (Free Text) Plan: COPD exacerbation legionella, mycoplasma, strep pneumo negative bordetella pertussis culture -- pending, F/U cxray: minor bibasilar atelectasis D dimer <200 WBC 03/13 - 14.8 from 9.1, most likely reactive from IV steroid use - keep monitoring CBC Pulmonology consult for Dr Guadarrama - continue nebulizer treatment, taper steroids, antibiotics Meds: duonebs inh q4h theo Tessalon perles 100 mg PO TID Mucinex 600mg po BID -- Discontinued Started Robitussin DM 10 ml PO Q4 Solumedrol 40mg ivp q12h Spiriva 18mgc inh daily Avelox 400mg daily, started 03/12 -- discontinued Uncontrolled HTN BP: 145/84 Continue monitoring BP Meds: ASA 81mg po daily HCTZ 12.5mg po daily Lopressor 25mg po BID Nifedipine 60mg po daily hyperkalemia 03/14 - 3.3 potassium chloride 20 meq PO once check am labs DMII resume home metformin 500mg PO BID HgA1C- 6.5 accuchecks ISS- low hypoglycemia protocol - last readings 142 (20:00 prev day), 177 (4am), 142 (8am) HLD Crestor 10mg po HS started Triglycerides: 62, Cholesterol 247, LDL 145, HDL 59 Tobacco Use Disorder Nicotine patch patient counseled on quitting CT chest W/O contrast - unremarkable Prophylaxis DVT: Lovenox 40mg sc daily GI: pepcid 20mg po daily Florastor 250mg po BID heart healthy diet Pain management: 03/13 given Tylenol 650 mg PO once for pain. Liver enzymes AST/ALT F/U pastoral care services - consult placed - help is appreciated Plan discussed with Dr Lynsey Delgado, PGY-1
[2018-03-14] MEDS ORDERED: guaiFENesin-Codeine 100-10mg/5ml Syrup (10ml) UD PO SCH (22:00)
[2018-03-15] MEDS: guaiFENesin DM 200 mg-20 mg/10 ml UD PO SCH ×6 (00:12→16:25)
[2018-03-15] MEDS: Albuterol-Ipratrop 3 mg / 0.5 (3 ml) UD INH SCH ×5 (00:27→15:44)
[2018-03-15 09:02] VITALS: TEMP 97.8
[2018-03-15] MEDS: Saccharomyces Boulardi 250 mg Cap PO SCH ×2 (09:23→17:31)
[2018-03-15] MEDS: NIFEdipine 60 mg ER Tab PO SCH (09:25)
[2018-03-15] MEDS: Enoxaparin 40 mg Syringe SC SCH (09:26)
[2018-03-15] MEDS: MethylPREDNISolone 40 mg Vial IVP SCH (09:28)
[2018-03-15 11:49] LABS: ALB/GLOB RATIO 1.2 (1.0-2.1); ALBUMIN 3.7 g/dL (3.5-5.0); ALT/SGPT 23 U/L (9-52); AST/SGOT 16 U/L (14-36); BLOOD UREA NITROGEN 22 mg/dL (7-17); GFR NON-AFRICAN AMERICAN > 60
[2018-03-15 15:55] VITALS: BP 145/89; PULSE 74; O2SAT 97
--- NOTE | 2018-03-15 16:24 | CP.PCM.PN ---
Subjective - Date & Time of Evaluation Date of Evaluation: 03/15/18 Time of Evaluation: 14:00 - Subjective Subjective: patient seen and examined Cough and shortness of breath much improved Afebrile no chest pain Stable from pulmonary standpoint Follow-up in the office Objective - Vital Signs/Intake and Output Vital Signs (last 24 hours): Temp Pulse Resp BP Pulse Ox 97.8 F 74 20 145/89 97 03/15/18 15:30 03/15/18 15:30 03/15/18 15:30 03/15/18 15:30 03/15/18 15:30 Intake and Output: 03/15/18 03/15/18 06:59 18:59 Intake Total 240 350 Balance 240 350 - Medications Medications: Current Medications Albuterol/Ipratropium (Duoneb 3 Mg/0.5 Mg (3 Ml) Ud) 3 ml INH RQ4 [facility] Last Admin: 03/15/18 15:44 Dose: Not Given Aspirin (Aspirin Chewable) 81 mg PO DAILY [facility] Last Admin: 03/15/18 09:24 Dose: 81 mg Benzonatate (Tessalon Perles) 100 mg PO TID [facility] Last Admin: 03/15/18 14:12 Dose: 100 mg Dextrose (Dextrose 50% Inj) 0 ml IV STAT PRN; Protocol PRN Reason: Hypoglycemia Protocol Dextrose (Glutose 15) 0 gm PO ONCE PRN; Protocol PRN Reason: Hypoglycemia Protocol Enoxaparin Sodium (Lovenox) 40 mg SC DAILY [facility] Last Admin: 03/15/18 09:26 Dose: 40 mg Famotidine (Pepcid) 20 mg PO DAILY [facility] Last Admin: 03/15/18 09:23 Dose: 20 mg Glucagon (Glucagen Diagnostic Kit) 0 mg IM STAT PRN; Protocol PRN Reason: Hypoglycemia Protocol Guaifenesin/Dextromethorphan (Robitussin Dm) 10 ml PO Q4 [facility] Last Admin: 03/15/18 11:35 Dose: 10 ml Hydrochlorothiazide (Microzide) 12.5 mg PO DAILY [facility] Last Admin: 03/15/18 09:23 Dose: 12.5 mg Metformin HCl (Glucophage) 500 mg PO BID [facility] Last Admin: 03/15/18 09:24 Dose: 500 mg Methylprednisolone (Solu-Medrol) 40 mg IVP Q12H [facility] Last Admin: 03/15/18 09:28 Dose: 40 mg Metoprolol Tartrate (Lopressor) 25 mg PO BID [facility] Last Admin: 03/15/18 09:24 Dose: 25 mg Nicotine (Nicoderm Cq) 1 patch TD DAILY [facility] Last Admin: 03/15/18 09:25 Dose: 1 patch Nifedipine (Procardia Xl) 60 mg PO DAILY [facility] Last Admin: 03/15/18 09:25 Dose: 60 mg Rosuvastatin Calcium (Crestor) 10 mg PO HS [facility] Last Admin: 03/14/18 21:59 Dose: 10 mg Saccharomyces Boulardii (Florastor) 250 mg PO BID [facility] Last Admin: 03/15/18 09:23 Dose: 250 mg Tiotropium [place] (Spiriva) 18 mcg INH RQ24 [facility] Last Admin: 03/13/18 08:30 Dose: Not Given - Labs Labs: 03/14/18 11:07 03/15/18 11:08 Assessment and Plan (1) Bronchitis Status: Acute (2) COPD (chronic obstructive pulmonary disease) Status: Acute
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
== END 2018-03-15 18:00 | disposition home or self-care (01) | DRG 192 ==
LOC: C.ER 12:51 → C.9E 14:40 → C.5S 16:07 → C.3T 03-14 11:26 → OBSVTOIN 03-14 14:19 → C.3T 03-15 17:49
PROVIDERS: ADMIT Internal Medicine; ATTEND Internal Medicine
DX: J44.1 Chronic obstructive pulmonary disease with (acute) exacerbation (principal); F17.210 Nicotine dependence, cigarettes, uncomplicated; E78.5 Hyperlipidemia, unspecified; G47.33 Obstructive sleep apnea (adult) (pediatric); E66.01 Morbid (severe) obesity due to excess calories; E11.9 Type 2 diabetes mellitus without complications; I10 Essential (primary) hypertension; Z79.84 Long term (current) use of oral hypoglycemic drugs; Z91.19 Patient's noncompliance with other medical treatment and regimen; X37.0XXD Hurricane, subsequent encounter; Z68.39 Body mass index [BMI] 39.0-39.9, adult